=== PATIENT | female | born 1935 | race Caucasian/White ===

== ENCOUNTER 2020-01-24 12:04 | Emergency (ER) | payer MEDICARE, MEDICAID ==
[~2020-01-24] VITALS: Ht 165.1 cm; Wt 131.8 kg
[2020-01-24 12:09] VITALS: Ht 165.1 cm; Wt 131.8 kg
[2020-01-24] MEDS ORDERED: ACETAMINOPHEN325 MG PO (12:11)
[2020-01-24] MEDS ORDERED: ARTIFICIAL TEARS (12:12)
[2020-01-24] MEDS ORDERED: DULCOLAX5 MG PO (12:12)
[2020-01-24] MEDS ORDERED: ASPIRIN81 MG PO (12:12)
[2020-01-24] MEDS ORDERED: CARAFATE1 G PO (12:13)
[2020-01-24] MEDS ORDERED: CALCIUM 600 +1 EAC3 PO (12:13)
[2020-01-24] MEDS ORDERED: COREG 3.1253.125 MG PO (12:13)
[2020-01-24] MEDS ORDERED: ELIQUIS5 MG PO (12:14)
[2020-01-24] MEDS ORDERED: CYMBALTA20 MG PO (12:14)
[2020-01-24] MEDS ORDERED: FLUTICASONE PRO16 GM NASAL (12:15)
[2020-01-24] MEDS ORDERED: FERROUS SULFAT325 MG PO (12:15)
[2020-01-24] MEDS ORDERED: GABAPENTIN100 MG PO (12:15)
[2020-01-24] MEDS ORDERED: ISOSORBIDE DINI20 MG PO (12:16)
[2020-01-24] MEDS ORDERED: IPRAT-ALBUT 0.5-3 ML UPD (12:16)
[2020-01-24] MEDS ORDERED: LASIX40 MG PO (12:17)
[2020-01-24] MEDS ORDERED: LISINOPRIL10 MG PO (12:18)
[2020-01-24] MEDS ORDERED: K-TAB10 MEQ PO (12:18)
[2020-01-24] MEDS ORDERED: PREVACID15 MG PO (12:19)
[2020-01-24] MEDS ORDERED: ZOCOR20 MG PO (12:19)
[2020-01-24] MEDS ORDERED: RISPERDAL1 MG PO (12:19)
[2020-01-24 14:14] LABS: APTT 26.2 SECONDS (22.8-39.4); INR 1.1 (0.85-1.17); PROTIME 14.2 SECONDS (11.6-15.0)
[2020-01-24 14:22] LABS: BASOPHILS 0.4 % (0-2); EOSINOPHILS 3.7 % (0-7); HEMATOCRIT 34.6 % (36.0-48.0); HEMOGLOBIN 10.5 g/dL (12-16); IMMATURE GRANULOCYTES 0.5 % (0-5); LYMPHOCYTES 26.4 % (15-50); MCH 28.6 pg (26.0-34.0); MCHC 30.3 g/dL (31.0-37.0); MCV 94.3 fL (80.0-100.0); MEAN PLATELET VOLUME 9.8 fL (7.4-10.4); MONOCYTES 10.8 % (2-11); NEUTROPHILS 58.2 % (40-80); PLATELET COUNT 230 10x3/uL (130-400); RBC 3.67 10x6/uL (4.00-5.40); RDW 14.9 % (11.5-14.5); WBC 5.5 10x3/uL (4.8-10.8)
[2020-01-24 14:26] LABS: CALC OSMOLALITY 288 mosm/kg (275-300); CALCIUM 8.8 mg/dL (8.5-10.1); CARBON DIOXIDE 38.5 mmol/L (21.0-32.0); CHLORIDE - SERUM 103 mmol/L (98-107); CREATININE - SERUM 1.1 mg/dL (0.6-1.3); GLUCOSE 105 mg/dL (74-106); SODIUM 141 mmol/L (136-145); UREA NITROGEN 35 mg/dL (7-18); eGFR NON AFRICAN AMERICAN 50 mL/min (90-120)
[2020-01-24 14:42] LABS: ALBUMIN 2.6 g/dL (3.4-5.0); ALKALINE PHOSPHATASE 92 U/L (30-120); ALT (SGPT) 16 U/L (10-68); BILIRUBIN - TOTAL 0.47 mg/dL (0.2-1.3); CKMB 0.5 U/L (0.0-3.6); CREATINE KINASE 33 UL (21-215); MAGNESIUM - SERUM 1.8 mg/dL (1.8-2.4); PROTEIN - SERUM 6.2 g/dL (6.4-8.2); THYROID STIMULATING HORMONE 1.08 uIU/mL (0.36-3.74); TROPONIN-I 0.023 ng/mL (0.000-0.060)
[2020-01-24 15:30] LABS: BILIRUBIN NEGATIVE (NEGATIVE); GLUCOSE NEGATIVE (NEGATIVE); KETONE NEGATIVE (NEGATIVE); NITRITE POSITIVE (NEGATIVE); UROBILINOGEN NORMAL (NORMAL)
[2020-01-24 15:32] LABS: BACTERIA MANY /hpf (NEGATIVE); EPITHELIAL CELLS 0-5 /hpf (0-5); UDS - AMPHET NEGATIVE QUAL (NEGATIVE); UDS - BARB NEGATIVE QUAL (NEGATIVE); UDS - BENZO NEGATIVE QUAL (NEGATIVE); UDS - COCAINE NEGATIVE QUAL (NEGATIVE); UDS - OPIATE NEGATIVE QUAL (NEGATIVE); UDS - PCP NEGATIVE QUAL (NEGATIVE); UDS - THC NEGATIVE QUAL (NEGATIVE)
[2020-01-24] MEDS ORDERED: KEFLEX500 MG PO (15:43)
[2020-01-24] MEDS ORDERED: MACROBID100 MG PO (15:43)
[2020-01-24 22:03] VITALS: BP 161/83
== END 2020-01-24 22:03 ==
LOC: D.ER 12:04
PROVIDERS: Emergency Medicine
DX: N39.0 Urinary tract infection, site not specified (principal); D64.9 Anemia, unspecified; I10 Essential (primary) hypertension; F03.90 Unspecified dementia, unspecified severity, without behavioral disturbance, psychotic disturbance, mood disturbance, and anxiety; K21.9 Gastro-esophageal reflux disease without esophagitis